=== PATIENT | female | born 1985 | race Caucasian/White ===

== ENCOUNTER 2017-08-12 11:45 | Emergency (ER) | payer MEDICAID ==
[~2017-08-12] VITALS: Ht 154.9 cm; Wt 82.0 kg
[~2017-08-12 11:45] MED LIST: PREN-88 PO
[2017-08-12] MEDS ORDERED: ONDANSETRON HCL 4MG/2ML VIAL IV STA (12:02)
[2017-08-12] MEDS ORDERED: SODIUM CHLORIDE 0.9% 1,000 ML IV ONE ×2 (12:02→15:15)
[2017-08-12] MEDS ORDERED: MECLIZINE 25MG TABLET PO ONE ×2 (12:15→15:15)
[2017-08-12 12:29] LABS: BASOPHILS % 0.8 % (0.0-2.0); EOSINOPHILS % 2.4 % (0.0-5.0); HEMATOCRIT. 37.9 % (36.0-48.0); HEMOGLOBIN. 13.2 g/dL (12.0-16.0); MEAN CORPUSCULAR VOLUME 88.9 fL (81.0-99.0); MEAN PLATELET VOLUME 7.9 fl (7.4-10.4); MONOCYTES % 6.6 % (2.0-8.0); NEUTROPHILS % 59.2 % (40.0-76.0); PLATELET 270 x1000/uL (130-400); RED BLOOD CELL COUNT 4.27 mill/uL (4.2-5.4); RED CELL DISTRIBUTION WIDTH 12.9 % (11.6-14.6)
[2017-08-12 12:36] LABS: PROTHROMBIN TIME 10.7 sec (9.4-11.6)
[2017-08-12 12:43] LABS: CARBON DIOXIDE 30 mEq/L (21-32); CHLORIDE 103 mEq/L (98-107)
[2017-08-12 13:02] LABS: CLARITY URINE TURBID (CLEAR); COLOR URINE YELLOW (YELLOW); GLUCOSE URINE NEGATIVE (NEGATIVE); KETONES URINE NEGATIVE (NEGATIVE); LEUKOCYTE ESTERASE URINE 1+ (NEGATIVE); NITRITE URINE NEGATIVE (NEGATIVE); OCCULT BLOOD URINE NEGATIVE (NEGATIVE); PROTEIN URINE TRACE (NEGATIVE); SPECIFIC GRAVITY URINE 1.018 (1.005-1.030)
[2017-08-12] MEDS ORDERED: ONDANSETRON HCL 4MG/2ML VIAL IV ONE (15:15)
[2017-08-12 17:00] VITALS: BP 108/65
== END 2017-08-12 18:49 | disposition home or self-care (01) ==
LOC: ER 12:14
DX: H81.399 Other peripheral vertigo, unspecified ear (principal); R55 Syncope and collapse
CPT/HCPCS: 36415; 70450; 80053; 81001; 81025; 85025; 85610; 93005; 96361; 96374; 96376; 99285; J2405; J7030; Z7610; J8597